=== PATIENT | female | born 1975 | race American Indian/Alaskan Native ===

== ENCOUNTER 2016-09-30 08:42 | Outpatient (CLI) | payer BC ==
--- NOTE | 2016-09-30 13:10 | Mammography Report ---
BILATERAL MAMMOGRAM: FINDINGS: There are scattered fibroglandular densities (approximately 25%-50% glandular). No mass, distortion, suspicious calcification, or skin change is seen. There is no significant change compared to her prior study in May 2015. CAD was utilized. IMPRESSION: Negative mammogram. There is no mammographic evidence of malignancy. RECOMMENDATION: Follow-up per ACS guidelines. BI-RADS CATEGORY: 1 = Negative ACR BI-RADS MAMMOGRAPHIC CODES: 0 = Needs additional imaging evaluation; 1 = Negative; 2 = Benign; 3 = Probably benign; 4 = Suspicious; 5 = Malignant; 6 = Known biopsy-proven malignancy COMMENT: 1. Dense breast tissue, i.e., adenosis, fibrocystic changes, etc., may obscure an underlying neoplasm. 2. Approximately 10% of cancers are not detected with mammography. 3. A negative mammography report should not delay biopsy if a clinically suspicious mass is present. COMMENT: Patient follow-up letters are generated in [employer].
== END 2016-09-30 08:43 | disposition home or self-care (01) ==
LOC: MAMMO 08:42
PROVIDERS: ATTEND Internal Medicine
DX: Z12.31 Encounter for screening mammogram for malignant neoplasm of breast (principal)
CPT/HCPCS: 77067; G0202

== ENCOUNTER 2019-10-15 12:37 | Outpatient (CLI) | payer BC, MEDICARE ==
--- NOTE | 2019-10-15 13:45 | Mammography Report ---
DIGITAL SCREENING MAMMOGRAM WITH CAD, 10/15/2019 INDICATION: Routine screening mammography. ROUTINE TECHNIQUE: Digital bilateral 2D mammography was obtained in the craniocaudal and mediolateral obliq ue projections. This examination was interpreted with the benefit of Computer-Aided Detection analysi s. COMPARISON: 05/29/2015 and 09/30/2016. FINDINGS: Breast Density: There are scattered areas of fibroglandular density. There is no evidence of dominant mass, suspicious calcifications or architectural distortion in eithe r breast. IMPRESSION: No mammographic evidence of malignancy or significant change. Follow up recommendation: Routine yearly BI-RADS Category 1: Negative. A "normal" or negative report should not discourage follow up or biopsy of a clinically significant f inding. A written summary of these findings will be mailed to the patient. The patient will be entered into a mammography reporting system which will generate a reminder letter for the patient's next appointmen t at the appropriate interval. The [employer] recommends yearly mammograms starting at age 40 and continuing as l eloisa as a woman is in good health. Breast MRI is recommended for women with an approximate 20-25% or greater lifetime risk of breast cancer, including women with a strong family history of breast or ova dayna cancer or who have been treated for Hodgkin's disease. Signer Name: Balwinder Rouse MD Signed: 10/15/2019 1:41 PM Workstation Name: [id number]
== END 2019-10-15 12:38 | disposition home or self-care (01) ==
LOC: MAMMO 12:37
PROVIDERS: ATTEND Internal Medicine
DX: Z12.31 Encounter for screening mammogram for malignant neoplasm of breast (principal)
CPT/HCPCS: 77067

== ENCOUNTER 2020-06-13 07:25 | Day surgery (SDC) | payer MEDICARE, BC ==
[2020-06-13] MEDS ORDERED: ASPIRIN EC 325 MG TAB PO ONE (08:05)
[2020-06-13] MEDS ORDERED: SODIUM CHLORIDE 0.9% 500 ML 500 ML IV SCH (09:00)
[2020-06-13 09:20] LABS: Basophils # (Auto) 0.1 K/mm3 (0.0-0.1); Basophils % (Auto) 1.4 % (0.0-1.8); Eosinophils # (Auto) 0.5 K/mm3 (0.0-0.4); Eosinophils % (Auto) 7.1 % (0.0-4.3); Hematocrit 35.5 % (30.3-42.9); Hemoglobin 11.7 gm/dl (10.1-14.3); Lymphocytes # (Auto) 1.2 K/mm3 (1.2-5.4); Lymphocytes % (Auto) 17.9 % (13.4-35.0); Mean Corpuscular HGB Conc 33 % (30-34); Mean Corpuscular Volume 78 fl (79-97); Monocytes # (Auto) 0.5 K/mm3 (0.0-0.8); Monocytes % (Auto) 7.8 % (0.0-7.3); Platelet Count 211 K/mm3 (140-440); Red Blood Count 4.58 M/mm3 (3.65-5.03); Red Cell Distribution Width 21.5 % (13.2-15.2)
[2020-06-13] MEDS ORDERED: HEPARIN/NS 5000 UNIT/500ML 1,000 ML IR ONE (09:26)
[2020-06-13 09:30] LABS: Calcium 9.1 mg/dL (8.4-10.2)
[2020-06-13 09:45] LABS: INR 0.99 (0.87-1.13)
[2020-06-13] MEDS: LIDOCAINE (2%) 20 MG/1 ML VIAL 20 ML MDV INFILTRATI ONE ×2 (10:25→10:41)
[2020-06-13] MEDS: MIDAZOLAM 2 MG/2 ML INJ ONE ×2 (10:25→10:40)
[2020-06-13] MEDS: fentaNYL 100 MCG/2 ML INJ ONE ×2 (10:25→10:40)
[2020-06-13] MEDS: HEPARIN 10,000 UNITS/10 ML VIAL ONE ×2 (10:26→10:43)
[2020-06-13] MEDS: VERAPAMIL 5 MG/2 ML INJ ONE ×2 (10:26→10:43)
[2020-06-13] MEDS: NITROGLYCERIN SYRINGE 3 ML ONE ×2 (10:27→10:43)
[2020-06-13] MEDS ORDERED: HYDROcodone/ACETAMINOPHEN 5-325 MG TAB PO PRN (11:20)
[2020-06-13] MEDS ORDERED: traMADol 50 MG TAB PO PRN (11:20)
--- NOTE | 2020-06-13 11:26 | Short Stay Summary ---
Short Stay Documentation Date of service: 06/13/20 - History H&P: obtained from office - Allergies and Medications Current Medications: Allergies No Known Allergies Allergy (Verified 06/13/20 08:05) Home Medications Medication Instructions Recorded Confirmed Last Taken Type Clonidine HCl [Kapvay] 0.1 mg PO TID 06/13/20 06/13/20 06/12/20 History 0.1mg [facility] Advantage-Iron Non-Gmo Pwd 65 mg PO DAILY 06/13/20 06/13/20 06/12/20 History 65 mg Ferrous Sulfate [Ferrous Sulfate 325 mg PO BID 06/13/20 06/13/20 06/12/20 History 324 MG] 325 Labetalol HCl [Labetalol 300mg TAB] 300 mg PO TID 06/13/20 06/13/20 06/12/20 History 300 mg Susanne-Tory Rx Tablet 1 tab PO DAILY 06/13/20 06/13/20 06/12/20 History 1 Vitamin D3 5,000 RAPDIS 1 cap PO 1XW 06/13/20 06/13/20 06/12/20 History 1 calcitrioL [Rocaltrol] 0.5 mcg PO 3XW 06/13/20 06/13/20 06/12/20 History 0.5mcg hydrALAZINE [Apresoline TAB] 100 mg PO TID 06/13/20 06/13/20 06/12/20 History 100 mg lisinopriL [Zestril TAB] 40 mg PO DAILY 06/13/20 06/13/20 06/12/20 History 40 mg metOLazone [Zaroxolyn] 5 mg PO DAILY 06/13/20 06/13/20 06/12/20 History 5 mg Active Medications Sodium Chloride (Nacl 0.9% 500 Ml) 500 mls @ 50 mls/hr IV DIRECT SHARA Stop: 06/13/20 18:59 Last Admin: 06/13/20 09:00 Dose: 50 mls/hr Documented by: - Brief post op/procedure progress note Date of procedure: 06/13/20 Pre-op diagnosis: pre op Post-op diagnosis: other Procedure: see report Anesthesia: local Estimated blood loss: minimal Pathology: none - Disposition Condition at discharge: Good Disposition: [id number] TO HOME OR SELFCARE - Discharge Diagnoses (1) ESRD on peritoneal dialysis Status: Chronic (2) Cardiomyopathy Status: Chronic Qualifiers: Cardiomyopathy type: unspecified Qualified Code(s): I42.9 - Cardiomyopathy, unspecified (3) Hypertension Status: Chronic Qualifiers: Hypertension type: essential hypertension Qualified Code(s): I10 - Essential (primary) hypertension Short Stay Discharge Plan Activity: advance as tolerated Diet: low fat, low cholesterol Wound: keep clean and dry Follow up with: KING MUNSON MD [Primary Care Provider] - 7 Days
[2020-06-13 13:01] VITALS: BP 149/77
--- NOTE | 2020-06-13 13:39 | Cardiac Catherization Report ---
LEFT HEART CATHETERIZATION CLINICAL INFORMATION: This is a 44-year-old female with end-stage renal disease, on peritoneal dialysis, on echo cardiomyopathy, is here for left heart catheterization for ischemic evaluation. pre op for renal transplant Left heart catheterization was performed with moderate sedation started at 10:40, finished at 10:55, which is 15 minutes of moderate sedation. Procedure was done via the right radial artery, sterile technique, local anesthesia, 6-Congolese radial sheath inserted. Moderate tortuosity in the right innominate, left system with JL3.5 catheter. Left main is large and patent, trifurcates into large LAD that is patent with moderate tortuosity. Diagonal 1 small caliber vessel that is patent. Ramus is a large caliber vessel, patent, moderate tortuosity. Circumflex, medium caliber vessel, patent, bifurcates into medium caliber. OM1 and OM2 with moderate tortuosity, patent. RCA, subselective dominant vessel, patent with moderate to severe tortuosity, medium caliber. LV gram done in [facility] shows normal LV function, EF 50-55%, LVEDP 12 mmHg, LV is 143. Aortic is 143/81. No gradient across the aortic valve on pullback. 5-Congolese catheters all taken over a guidewire, 6-Congolese sheath was discontinued. Radial band applied. No hematoma, no bleeding. SUMMARY: Left main patent, LAD patent, ramus patent, circumflex patent, OM1, OM2 patent, RCA large dominant vessel, moderate to severe tortuous patent, normal LV function, EF 50-55% with normal left end-diastolic pressure. Continue risk factor modification.pt has no cardiac contraindications for renal transplant JOB# [id number] QUYEN/ZARINA TORRES
== END 2020-06-13 13:30 | disposition home or self-care (01) ==
LOC: CATHLABREC 07:25
PROVIDERS: ATTEND Internal Medicine
DX: I42.0 Dilated cardiomyopathy (principal); R94.31 Abnormal electrocardiogram [ECG] [EKG]; I12.0 Hypertensive chronic kidney disease with stage 5 chronic kidney disease or end stage renal disease; N18.6 End stage renal disease; D64.9 Anemia, unspecified; Z99.2 Dependence on renal dialysis; E78.00 Pure hypercholesterolemia, unspecified; Z79.899 Other long term (current) drug therapy; Z98.890 Other specified postprocedural states; Z94.0 Kidney transplant status
CPT/HCPCS: 36415; 80048; 85025; 85610; 85730; 93005; 93458; 99156; C1894; J1644; J2250; J3010; J7040; Q9967

== ENCOUNTER 2020-10-19 09:35 | Outpatient (CLI) | payer MEDICARE ==
--- NOTE | 2020-10-19 10:31 | Mammography Report ---
DIGITAL SCREENING MAMMOGRAM WITH CAD, 10/19/2020 CLINICAL INFORMATION / INDICATION: Routine screening mammography. SCREENING MAMMOGRAM TECHNIQUE: Digital bilateral 2D mammography was obtained in the craniocaudal and mediolateral obliqu e projections. This examination was interpreted with the benefit of Computer-Aided Detection analysis . COMPARISON: Prior mammograms 10/15/2019 and 09/30/2016 FINDINGS: Breast Density: There are scattered areas of fibroglandular density. No dominant mass, suspicious calcifications, or architectural distortion in either breast. There has been no significant change compared with the prior examinations. IMPRESSION: No mammographic evidence of malignancy. Follow up recommendation: Routine yearly BI-RADS Category 1: Negative. A "normal" or negative report should not discourage follow up or biopsy of a clinically significant f inding. A written summary of these findings will be mailed to the patient. The patient will be entered into a mammography reporting system which will generate a reminder letter for the patient's next appointmen t at the appropriate interval. The [employer] recommends yearly mammograms starting at age 40 and continuing as l eloisa as a woman is in good health. Breast MRI is recommended for women with an approximate 20-25% or greater lifetime risk of breast cancer, including women with a strong family history of breast or ova dayna cancer or who have been treated for Hodgkin's disease. Signer Name: Talisha Walters MD Signed: 10/19/2020 10:27 AM Workstation Name: [id number]
== END 2020-10-19 09:36 | disposition home or self-care (01) ==
LOC: MAMMO 09:35
PROVIDERS: ATTEND Advanced Practice Midwife
DX: Z12.31 Encounter for screening mammogram for malignant neoplasm of breast (principal); N64.89 Other specified disorders of breast
CPT/HCPCS: 77067

== ENCOUNTER 2022-01-28 11:23 | Outpatient (CLI) | payer MEDICARE ==
--- NOTE | 2022-01-30 09:29 | Mammography Report ---
DIGITAL SCREENING MAMMOGRAM WITH CAD, 01/28/2022 CLINICAL INFORMATION / INDICATION: Routine screening mammography. SCREENING TECHNIQUE: Digital bilateral 2D mammography was obtained in the craniocaudal and mediolateral obliqu e projections. This examination was interpreted with the benefit of Computer-Aided Detection analysis . COMPARISON: 10/19/2020 and 10/15/2019 FINDINGS: Breast Density: There are scattered areas of fibroglandular density. No dominant mass, suspicious calcifications, or architectural distortion in either breast. IMPRESSION: No mammographic evidence of malignancy. Follow up recommendation: Routine yearly screening mammogram. BI-RADS Category 1: NEGATIVE A "normal" or negative report should not discourage follow up or biopsy of a clinically significant f inding. A written summary of these findings will be mailed to the patient. The patient will be entered into a mammography reporting system which will generate a reminder letter for the patient's next appointmen t at the appropriate interval. The [employer] recommends yearly mammograms starting at age 40 and continuing as l eloisa as a woman is in good health. Breast MRI is recommended for women with an approximate 20-25% or greater lifetime risk of breast cancer, including women with a strong family history of breast or ova dayna cancer or who have been treated for Hodgkin's disease. Signer Name: Theodore Espinoza MD Signed: 01/30/2022 9:24 AM Workstation Name: [id number]
== END 2022-01-28 11:24 | disposition home or self-care (01) ==
LOC: MAMMO 11:23
PROVIDERS: ATTEND Advanced Practice Midwife
DX: Z12.31 Encounter for screening mammogram for malignant neoplasm of breast (principal)
CPT/HCPCS: 77067